=== PATIENT | male | born 1960 | race Caucasian/White ===

== ENCOUNTER 2018-08-21 13:20 | Emergency (ER) | payer MEDICAID ==
--- NOTE | 2018-08-21 14:08 | ER Document Report ---
ED General - General Chief Complaint: Altered Mental Status Stated Complaint: ALTERED Time Seen by Provider: 08/21/18 13:42 Mode of Arrival: Ambulatory Information source: Patient TRAVEL OUTSIDE OF THE [place] IN LAST 30 DAYS: No - HPI Patient complains to provider of: unresponsive Onset: Other - This is a generally healthy 58-year-old man that presents for evaluation of intermittent refusal to communicate over the last 2 days, his notes that he has stopped talking quite as much at home, he will intermittently refused to respond or act as if he is entirely unable to hear her. Nothing is seeming to make this any better, time seems to be making it somewhat worse. Nothing recently as far as illnesses or trauma preceded this, she does note that his mother recently and his daughter is attempting to move in with them. Because of the stress related there to she is concerned that this could potentially be related to grieving, denies any history of strokes in the past, heart attacks in the past, does have a history of hypertension as well as diabetes neither of which are currently being treated. - Related Data Allergies/Adverse Reactions: No Known Allergies Allergy (Verified 08/21/18 13:24) Past Medical History - General Information source: Patient - Social History Smoking Status: Current Every Day Smoker Chew tobacco use (# tins/day): No Frequency of alcohol use: None Drug Abuse: None Family History: Reviewed & Not Pertinent Patient has suicidal ideation: No Patient has homicidal ideation: No - Past Medical History Cardiac Medical History: Reports: Hx Hypercholesterolemia, Hx Hypertension Endocrine Medical History: Reports: Hx Diabetes Mellitus Type 2 Renal/ Medical History: Denies: Hx Peritoneal Dialysis Past Surgical History: Reports: Hx Orthopedic Surgery - bilateral knee surgery - Immunizations Hx Diphtheria, Pertussis, Tetanus Vaccination: No Review of Systems - Review of Systems -: Yes All other systems reviewed and negative Physical Exam - Vital signs Vitals: Temp Pulse Resp BP Pulse Ox 98.1 F 82 18 151/80 H 100 08/21/18 13:25 08/21/18 13:25 08/21/18 13:25 08/21/18 13:25 08/21/18 13:25 - General General appearance: Appears well In distress: None - HEENT Head: Normocephalic Eyes: Normal Conjunctiva: Normal Cornea: Normal Extraocular movements intact: Yes Eyelashes: Normal Pupils: PERRL - Respiratory Respiratory status: No respiratory distress Chest status: Nontender Breath sounds: Normal Chest palpation: Normal - Cardiovascular Rhythm: Regular Heart sounds: Normal auscultation Murmur: No - Abdominal Inspection: Normal Distension: No distension Tenderness: Nontender - Back Back: Normal - Extremities General upper extremity: Normal inspection, Nontender, Normal strength, Normal temperature General lower extremity: Normal inspection, Nontender, Normal strength, Normal temperature - Neurological Neuro grossly intact: No Viry Coma Scale Eye Opening: Spontaneous Viry Coma Scale Verbal: None Viry Coma Scale Motor: Obeys Commands Viry Coma Scale Total: 11 Speech: Other - No speech Cranial nerves: Normal Cerebellar coordination: Normal Motor strength normal: LUE, RUE, LLE, RLE - Psychological Associated symptoms: Normal affect Course - Re-evaluation Re-evalutation: 08/21/18 16:57 This gentleman presented in a near catatonic state. He was staring forward however would regard appropriately intermittently he would follow commands primarily with motor movements, neurologically he was intact and would answer questions with appropriate head nods. Because of this likely not representing a central ischemic event deferred stroke activation. Initiated broad workup including EKG labs as well as MRI of brain. During time while awaiting diagnostics the patient began to speak appropriately to his . It was divulged that this patient has been dealing with serious stress related to his life recently. He has been having a lot of stress related to his stepdaughter moving home in the recent of his mother. His MRI was remarkable for an AVM without any obvious bleed or acute changes. Do not believe this accounts for his current actions or reaction. He is neurologically intact at this time, he is well-appearing, has no complaints, is laughing appreciably. I did speak to this patient and his at length about whether or not he believes that he would benefit from potential treatment of depression and anxiety. He was adamant that he is 1 not suicidal to has no desire to harm anyone else in 3 is not having any external stimulus. Believe that this patient is safe for outpatient management, he currently has an outpatient follow-up appointment scheduled. We will initiate a low dose of Prozac for this patient. We will initiate a low dose of Atarax for this patient as needed for anxiety. Currently is neurologically intact and ambulatory without assistance and appropriate. He and his are in agreement with the current course of action at this time, I had updated them on the lab results as well as her diagnostic imaging. Plan for this patient to return in case of any worsening. - Vital Signs Vital signs: Temp Pulse Resp BP Pulse Ox 98.1 F 84 18 133/91 H 98 08/21/18 13:25 08/21/18 13:43 08/21/18 15:53 08/21/18 15:53 08/21/18 15:53 - Laboratory Result Diagrams: 08/21/18 13:35 08/21/18 13:35 Laboratory results interpreted by me: 08/21/18 08/21/18 08/21/18 13:29 13:35 13:35 Hgb 17.1 H Glucose 200 H POC Glucose 199 H Calcium 10.6 H Total Protein 8.3 H Discharge - Discharge Clinical Impression: Anxiety, Grief reaction Condition: Good Disposition: HOME, SELF-CARE Instructions: Anxiety ([facility]), Depression ([facility]) Additional Instructions: You were seen today for your depression and reaction he had an evaluation including an MRI and multiple blood tests. I believe that your reaction as a result of your depression. Your found to have an arteriovenous malformation on your MRI which is likely been there your entire life. Use the medications prescribed to you, take the medication for anxiety only as needed. Return for any worsening depression or anxiety. If you have worsening symptoms do not hesitate, call 911 and come to the emergency department. Prescriptions: Fluoxetine HCl [Prozac 20 mg Capsule] 20 mg PO DAILY #30 capsule Hydroxyzine HCl [Atarax 25 mg Tablet] 1 - 2 tab PO QID #25 tablet Forms: Elevated Blood Pressure
[2018-08-21 14:09] LABS: ABSOLUTE EOSINOPHILS # (AUTO) 0.2 10^3/uL (0.0-0.6); ABSOLUTE LYMPHOCYTES (AUTO) 2.5 10^3/uL (0.5-4.7); ABSOLUTE MONOCYTES (AUTO) 0.6 10^3/uL (0.1-1.4); ABSOLUTE NEUT (AUTO) 4.4 10^3/uL (1.7-8.2); BASOPHILS % (AUTO) 0.6 % (0-2); HEMATOCRIT 49.2 % (37.9-51.0); HEMOGLOBIN 17.1 g/dL (13.5-17.0); LYMPHOCYTES % (AUTO) 32.3 % (13-45); MEAN CORPUSCULAR HEMOGLOBIN 32.2 pg (27.0-33.4); MEAN CORPUSCULAR HGB CONC 34.8 g/dL (32.0-36.0); MEAN CORPUSCULAR VOLUME 93 fl (80-97); MONOCYTES % (AUTO) 8.1 % (3-13); PLATELET COUNT 235 10^3/uL (150-450); RED BLOOD COUNT 5.31 10^6/uL (4.35-5.55); TOTAL CELLS COUNTED % (AUTO) 100 %; WHITE BLOOD COUNT 7.8 10^3/uL (4.0-10.5)
[2018-08-21 14:13] LABS: ALANINE AMINOTRANSFERASE 49 U/L (21-72); ALBUMIN 4.7 g/dL (3.5-5.0); ALKALINE PHOSPHATASE 79 U/L (38-126); ANION GAP 13 (5-19); ASPARTATE AMINO TRANSFERASE 42 U/L (17-59); BILIRUBIN,DIRECT 0.2 mg/dL (0.0-0.4); BILIRUBIN,TOTAL 0.7 mg/dL (0.2-1.3); BLOOD UREA NITROGEN 17 mg/dL (7-20); CALCIUM 10.6 mg/dL (8.4-10.2); CARBON DIOXIDE 26 mmol/L (22-30); CHLORIDE 102 mmol/L (98-107); GLUCOSE 200 mg/dL (75-110); POTASSIUM 4.5 mmol/L (3.6-5.0); TOTAL PROTEIN 8.3 g/dL (6.3-8.2)
[2018-08-21] MEDS ORDERED: LORAZEPAM INJ 2 MG/1 ML VIAL IV ONE (15:09)
--- NOTE | 2018-08-21 15:46 | RADIOLOGY REPORT (SQ) ---
EXAM DESCRIPTION: MRI HEAD COMBO COMPLETED DATE/TIME: 08/21/2018 3:35 pm REASON FOR STUDY: concern for CVA in basal ganglia COMPARISON: None. TECHNIQUE: Multiplanar imaging includes non-contrasted T1, T2, FLAIR, and diffusion with ADC map seq uences. Images stored on PACS. LIMITATIONS: None. FINDINGS: ANATOMY: Left occipital AVM measuring about 3.7 x 2.6 cm. CSF SPACES: Normal in size and contour. No hemorrhage. CEREBRUM: Sulci and gyri normal in size and contour. No evidence of hemorrhage, mass, or extraaxial fluid collection. POSTERIOR FOSSA: No signal alteration. No hemorrhage. No edema, masses or mass effect. Internal laura tory canals, cerebello-pontine angles, mastoids normal. DIFFUSION IMAGING: Negative for acute or sub-acute infarction. ORBITS: No masses. Globes normal. PARANASAL SINUSES: Opacified left maxillary sinus. Mucosal thickening left frontal sinus. Fluid le ft ethmoid sinuses. OTHER: No other significant finding. IMPRESSION: Left occipital AVM. No acute findings. EVIDENCE OF ACUTE STROKE: NO. TECHNICAL DOCUMENTATION: JOB ID: [id number]- All Rights Reserved Reading location - IP/workstation name: [email or web address]
[2018-08-21 17:03] VITALS: BP 133/97
--- NOTE | 2018-08-21 19:21 | EKG REPORT ---
SEVERITY:- NORMAL ECG - SINUS RHYTHM : Confirmed by: Jose Bruner MD 21-Aug-2018 19:20:57
== END 2018-08-21 17:05 | disposition home or self-care (01) ==
LOC: ER 13:20
DX: F43.22 Adjustment disorder with anxiety (principal); Q28.2 Arteriovenous malformation of cerebral vessels; I10 Essential (primary) hypertension; E11.9 Type 2 diabetes mellitus without complications; F17.200 Nicotine dependence, unspecified, uncomplicated
CPT/HCPCS: 93005; 99285; 96374; 36415; 82962; 85025; 80053; 84484; 70553; 93010; A9576; J2060

== ENCOUNTER → 2018-09-17 | Outpatient (CLI) | payer MEDICAID ==
--- NOTE | 2018-09-17 13:56 | RADIOLOGY REPORT (SQ) ---
EXAM DESCRIPTION: KNEE LEFT 4 VIEWS COMPLETED DATE/TIME: 09/17/2018 1:43 pm REASON FOR STUDY: CHRONIC PAIN OF BOTH KNEES;CHRONIC LBP WITH SCIATICA LATERALITY M25.562 PAIN IN L EFT KNEE M25.561 PAIN IN RIGHT KNEE M54.40 LUMBAGO WITH SCIATICA, UNSPECIFIED SIDE COMPARISON: None. NUMBER OF VIEWS: Four views. TECHNIQUE: AP, lateral, and both oblique radiographic images acquired of the left knee. LIMITATIONS: None. FINDINGS: MINERALIZATION: Normal. BONES: No acute fracture or dislocation. No worrisome bone lesions. JOINT: No effusion. SOFT TISSUES: No soft tissue swelling. No radio-opaque foreign body. OTHER: No other significant finding. IMPRESSION: NEGATIVE STUDY OF THE LEFT KNEE. NO RADIOGRAPHIC EVIDENCE OF ACUTE INJURY. TECHNICAL DOCUMENTATION: JOB ID: [id number] [employer]- All Rights Reserved Reading location - IP/workstation name: [email or web address]
--- NOTE | 2018-09-17 13:56 | RADIOLOGY REPORT (SQ) ---
EXAM DESCRIPTION: KNEE RIGHT 4 VIEWS COMPLETED DATE/TIME: 09/17/2018 1:43 pm REASON FOR STUDY: CHRONIC PAIN OF BOTH KNEES;CHRONIC LBP WITH SCIATICA LATERALITY M25.562 PAIN IN L EFT KNEE M25.561 PAIN IN RIGHT KNEE M54.40 LUMBAGO WITH SCIATICA, UNSPECIFIED SIDE COMPARISON: None. NUMBER OF VIEWS: Four views. TECHNIQUE: AP, lateral, and both oblique radiographic images acquired of the right knee. LIMITATIONS: None. FINDINGS: MINERALIZATION: Normal. BONES: No acute fracture or dislocation. No worrisome bone lesions. JOINT: No effusion. SOFT TISSUES: No soft tissue swelling. No radio-opaque foreign body. OTHER: No other significant finding. IMPRESSION: NEGATIVE STUDY OF THE RIGHT KNEE. NO RADIOGRAPHIC EVIDENCE OF ACUTE INJURY. TECHNICAL DOCUMENTATION: JOB ID: [id number] [employer]- All Rights Reserved Reading location - IP/workstation name: [email or web address]
--- NOTE | 2018-09-17 13:57 | RADIOLOGY REPORT (SQ) ---
EXAM DESCRIPTION: LUMBAR SPINE COMPLETE COMPLETED DATE/TIME: 09/17/2018 1:43 pm REASON FOR STUDY: CHRONIC LBP WITH SCIATICA, SCIATICA LATERALITY UNSPECIFIED M25.562 PAIN IN LEFT K NEE M25.561 PAIN IN RIGHT KNEE M54.40 LUMBAGO WITH SCIATICA, UNSPECIFIED SIDE COMPARISON: None. NUMBER OF VIEWS: Five views including obliques. TECHNIQUE: AP, lateral, oblique, and sacral radiographic images acquired of the lumbar spine. LIMITATIONS: None. FINDINGS: MINERALIZATION: Normal. SEGMENTATION: Normal. No transitional anatomy. ALIGNMENT: Mild dextroscoliosis. VERTEBRAE: Maintained height. No fracture or worrisome bone lesion. DISCS: There is mild disc narrowing at L4-5 and greater narrowing at L5-S1. Marginal osteophytes are present. POSTERIOR ELEMENTS: Pedicles and facets are intact. No pars defect or posterior arch defects. HARDWARE: None in the spine. PARASPINAL SOFT TISSUES: Normal. PELVIS: Intact as visualized. No fractures or worrisome bone lesions. SI joints intact. OTHER: No other significant finding. IMPRESSION: Degenerative disc disease. Spondylosis. TECHNICAL DOCUMENTATION: JOB ID: [id number] [employer]- All Rights Reserved Reading location - IP/workstation name: [email or web address]
== END ==
LOC: OD 13:11
PROVIDERS: ATTEND Family Medicine
DX: M54.40 Lumbago with sciatica, unspecified side (principal); M25.562 Pain in left knee; M25.561 Pain in right knee
CPT/HCPCS: 72110